=== PATIENT | female | born 1945 | race Asian ===

== ENCOUNTER 2019-03-23 09:40 | Emergency (ER) | payer OTHER, BC ==
[2019-03-23 09:52] VITALS: BMI 27.3
[2019-03-23] MEDS ORDERED: ONDANSETRON 4 MG/2 ML VIAL IVPUSH ONE (10:08)
[2019-03-23] MEDS ORDERED: SODIUM CHLORIDE 0.9% 1000 ML INFUS.BAG IV ONE (10:14)
--- NOTE | 2019-03-23 10:25 | PDOC ---
Documentation entered by Yazmin Winslow SCRIBE, acting as scribe for Razia Galaviz MD. Razia Galaviz MD: This documentation has been prepared by the Goldy mata Adrianna, SCRIBE, under my direction and personally reviewed by me in its entirety. I confirm that the documentation accurately reflects all work, treatment, procedures, and medical decision making performed by me. History of Present Illness - General Chief Complaint: Pain Stated Complaint: ABD.PAIN - History of Present Illness Initial Comments: 74 Y F, PMH of TIA (2007), HTN, HLD, presenting with abdominal pain since yesterday. Patient notes sudden onset abdominal pain, most prominent over the LLQ. Her pain is exacerbated with PO intake, and she endorses associated nausea (without vomiting). She reports taking tylenol last night with minimal relief of symptoms. Patient notes she fell down the stairs 2 days ago, landing on her buttox and is unsure if it is related to her current symptoms. She reports some low back pain secondary to the fall, but denies bruising, hip pain, pain with ambulation, or head contusion. Patient reports unassociated urinary frequency secondary to hydrochlorothiazide medication. She otherwise denies any acute complaints. Denies fever, chills, diarrhea, constipation, dysuria, or hematuria. Allergies: Meperidine HCl, penicillins Surgical History: x3, appendectomy, tonsillectomy Social History: Denies EtOH, tobacco, or illicit drug use PCP: Dr. Love Past History - Past Medical History Allergies/Adverse Reactions: Allergies Allergy/AdvReac Type Severity Reaction Status Date / Time meperidine HCl [From Demerol] Allergy Mild vomitting Verified 03/23/19 09:49 Penicillins Allergy Mild Rash Verified 03/23/19 09:49 Home Medications: Ambulatory Orders Amlodipine Besylate [Norvasc -] 5 mg PO DAILY 10/17/13 Aspirin/Dipyridamole [Aggrenox -] 1 combo PO ONCE 10/17/13 Losartan Potassium 25 mg PO DAILY 10/17/13 Ciprofloxacin [Cipro -] 500 mg PO Q12H #28 tablet 03/23/19 metroNIDAZOLE [Flagyl -] 500 mg PO TID #42 tablet MDD 3 03/23/19 CVA: Yes (TIA: 2007) COPD: No HTN: Yes - Surgical History Abdominal Surgery: Yes Appendectomy: Yes - Psycho Social/Smoking Cessation Hx Smoking History: Never smoked Information on smoking cessation initiated: No Hx Alcohol Use: No Drug/Substance Use Hx: No Review of Systems - Review of Systems Comments:: GENERAL/CONSTITUTIONAL: No fever or chills. No weakness. HEAD, EYES, EARS, NOSE AND THROAT: No change in vision. No ear pain or discharge. No sore throat. CARDIOVASCULAR: No chest pain or shortness of breath. RESPIRATORY: No cough, wheezing, or hemoptysis. GASTROINTESTINAL: +LLQ abdominal pain, worse with eating. +Nausea. No vomiting, diarrhea or constipation. GENITOURINARY: +Urinary frequency (secondary to hydrochlorothiazide). No dysuria , frequency, or change in urination. MUSCULOSKELETAL: +Low back pain (secondary to fall). No joint or muscle swelling or pain. No neck pain. SKIN: No rash NEUROLOGIC: No headache, vertigo, loss of consciousness, or change in strength/ sensation. ENDOCRINE: No increased thirst. No abnormal weight change. HEMATOLOGIC/LYMPHATIC: No anemia, easy bleeding, or history of blood clots. ALLERGIC/IMMUNOLOGIC: No hives or skin allergy. *Physical Exam - Vital Signs Last Vital Signs Temp Pulse Resp BP Pulse Ox 98 F 59 L 18 152/89 100 03/23/19 09:48 03/23/19 09:48 03/23/19 09:48 03/23/19 09:48 03/23/19 09:48 - Physical Exam Comments: 03/23/19 10:23 Patient is awake alert no acute distress lungs are clear bilaterally heart is regular without any murmurs rubs or gallops abdomen is soft there is mild left lower quadrant tenderness to palpation no rebound no guarding no CVA tenderness no ecchymosis noted to the skin. Extremities are warm well perfused there is no edema patient has symmetric 2+ radial DP pulses neurologically she is alert and oriented x3 moving all 4 extremities ED Treatment Course - LABORATORY CBC & Chemistry Diagram: 03/23/19 10:25 03/23/19 10:25 - RADIOLOGY Radiology Studies Ordered: Category Date Time Status ABDOMEN & PELVIS CT WITH CONTR [CT] Stat CT Scan 03/23/19 10:15 Ordered Radiograph Interpretation: EXAM#: TYPE/EXAM: RESULT: [id number] CT/ABDOMEN PELVIS CT W/O CONTR HISTORY PROVIDED: Left lower quadrant pain IMPRESSION: 1. Findings suspicious for acute diverticulitis of the distal descending colon without abscess formation. 2. Diffuse fatty infiltration of the liver. 3. Cholelithiasis. Reported By: Grant Harmon MD 03/23/19 13:24 Medical Decision Making - Medical Decision Making 03/23/19 10:24 74-year-old female history of hypercholesterol hypertension here today complaining of left lower quadrant pain and nausea. Started yesterday mild left lower quadrant tenderness to exam. Differential includes diverticulitis, colitis, UTI, pyelonephritis, ovarian pathology. Plan CT abdomen pelvis with oral contrast IV fluids. Patient declined antiemetics or pain medication at this time 03/23/19 14:[address] with diverticulitis. wbc normal 8. pt feels comfortable. would like to go home with cipro and flagyl for 2 weeks. wouldl gertrude to follow up with her GI dr martinez. instructed to come back with fever worsening pain or any concerns. informed about gallstones and fatty liver also. Discharge - Discharge Information Problems reviewed: Yes Clinical Impression/Diagnosis: Diverticulitis, Fatty liver, Cholelithiases Condition: Improved Disposition: HOME - Admission No - Additional Discharge Information Prescriptions: Ciprofloxacin [Cipro -] 500 mg PO Q12H #28 tablet metroNIDAZOLE [Flagyl -] 500 mg PO TID #42 tablet MDD 3 - Follow up/Referral Referrals: Axel Martinez MD [Staff Physician] - Michelle Love MD [Primary Care Provider] - - Patient Discharge Instructions Patient Printed Discharge Instructions: Diverticulitis, DI for Nonalcoholic Fatty Liver Disease Additional Instructions: your CT scan shows you have diverticulitis . you should take clear liquids for at least 48 hrs . return immediately for worsening pain, fever. vomiting or any concerns. you should follow up with dr Mackey tomorrow. confirm time with the office. you should take ciprofloxacin 500 mg twice daily x 2 weeks starting this evening. you should also take flagyl 500 mg three times daily x 2 weeks. you will also need to follow up wtih DR martinez your GI doctor, for fatty liver disease and gallstones that were seen on the ct scan of your abdomen, for your pain you can take tylenol 500 mg every 6 hrs as needed. - Post Discharge Activity
[2019-03-23 10:49] LABS: BASO % 0.6 % (0-2.0); EOS % 3.6 % (0-4.5); HEMATOCRIT 38.8 % (32.4-45.2); HEMOGLOBIN 13.2 GM/dL (10.7-15.3); LYMPH % 24.7 % (8-40); MCH 29.7 pg (25.7-33.7); MCHC 33.9 g/dl (32.0-36.0); MEAN CELL VOLUME 87.7 fl (80-96); MEAN PLT VOLUME 6.8 fl (7.5-11.1); NEUT % 63.1 % (42.8-82.8); PLATELET COUNT 266 K/MM3 (134-434); RBC 4.43 M/mm3 (3.60-5.2); RDW 14.2 % (11.6-15.6); WHITE BLOOD COUNT 8.3 K/mm3 (4.0-10.0)
[2019-03-23 11:15] LABS: ALBUMIN 3.7 g/dl (3.4-5.0); BILIRUBIN,TOTAL 0.8 mg/dL (0.2-1); BLOOD UREA NITROGEN 13.4 mg/dL (7-18); CALCIUM 8.8 mg/dL (8.5-10.1); POTASSIUM 3.9 mmol/L (3.5-5.1); TOT PROT 7.6 g/dl (6.4-8.2)
[2019-03-23 11:22] LABS: PH,URINE 7.5 (5.0-8.0); URINE APPEARANCE Clear; URINE BILIRUBIN Negative (NEGATIVE); URINE COLOR Yellow; URINE GLUCOSE (UA) Negative (NEGATIVE); URINE KETONE Negative (NEGATIVE); URINE LEUK ESTERASE Negative (NEGATIVE); URINE NITRITE Negative (NEGATIVE); URINE PROTEIN Negative (NEGATIVE); URINE UROBILINOGEN 0.2 mg/dL (0.2-1.0)
[2019-03-23] MEDS ORDERED: CIPROFLOXACIN 400 MG/D5W 400 MG/200 ML IVPB IVPB ONE (13:42)
[2019-03-23 14:01] VITALS: BP 147/98; PULSE 68; TEMP 97.9
== END 2019-03-23 14:40 | disposition home or self-care (01) ==
LOC: JER 09:40
PROC: 3E0337Z Introduction of Electrolytic and Water Balance Substance into Peripheral Vein, Percutaneous Approach (ICD-10-PCS; principal; 2019-03-23)
PROC: 3E03329 Introduction of Other Anti-infective into Peripheral Vein, Percutaneous Approach (ICD-10-PCS; 2019-03-23)
DX: K57.92 Diverticulitis of intestine, part unspecified, without perforation or abscess without bleeding (principal); K76.0 Fatty (change of) liver, not elsewhere classified; K80.20 Calculus of gallbladder without cholecystitis without obstruction; E78.00 Pure hypercholesterolemia, unspecified; I10 Essential (primary) hypertension; Z86.73 Personal history of transient ischemic attack (TIA), and cerebral infarction without residual deficits; Z88.0 Allergy status to penicillin; Z88.8 Allergy status to other drugs, medicaments and biological substances
CPT/HCPCS: 36415; 74176-TC; 80053; 81003; 83690; 85025; 87086; 99283-25; J7030; Q9967

== ENCOUNTER 2019-04-19 11:25 | Emergency (ER) | payer OTHER, BC ==
[2019-04-19 11:30] VITALS: BMI 29.2
[2019-04-19 12:41] LABS: BASO % 0.9 % (0-2.0); EOS % 4.7 % (0-4.5); HEMOGLOBIN 13.3 GM/dL (10.7-15.3); LYMPH % 37.3 % (8-40); MCHC 32.4 g/dl (32.0-36.0); MEAN CELL VOLUME 89.4 fl (80-96); MEAN PLT VOLUME 6.9 fl (7.5-11.1); MONO % 7.7 % (3.8-10.2); NEUT % 49.4 % (42.8-82.8); PLATELET COUNT 285 K/MM3 (134-434); RBC 4.59 M/mm3 (3.60-5.2); RDW 14.5 % (11.6-15.6); WHITE BLOOD COUNT 6.5 K/mm3 (4.0-10.0)
[2019-04-19 12:45] LABS: INR 0.92 (0.83-1.09); PROTHROMBIN TIME (PATIENT) 10.8 SEC (9.7-13.0)
[2019-04-19 12:47] LABS: ACTIVATED PTT 34.2 SECONDS (25.2-36.5)
[2019-04-19 13:01] LABS: PH,URINE 7.5 (5.0-8.0); URINE APPEARANCE CLEAR; URINE BILIRUBIN NEGATIVE (NEGATIVE); URINE COLOR YELLOW; URINE GLUCOSE (UA) NEGATIVE (NEGATIVE); URINE KETONE NEGATIVE (NEGATIVE); URINE LEUK ESTERASE NEGATIVE (NEGATIVE); URINE NITRITE NEGATIVE (NEGATIVE); URINE PROTEIN NEGATIVE (NEGATIVE); URINE UROBILINOGEN 0.2 mg/dL (0.2-1.0)
[2019-04-19 13:10] LABS: ALBUMIN 3.7 g/dl (3.4-5.0); BILIRUBIN,TOTAL 0.3 mg/dL (0.2-1); BLOOD UREA NITROGEN 14.3 mg/dL (7-18); CALCIUM 8.9 mg/dL (8.5-10.1); CREATININE 0.9 mg/dL (0.55-1.3); POTASSIUM 3.9 mmol/L (3.5-5.1); TOT PROT 7.6 g/dl (6.4-8.2)
--- NOTE | 2019-04-19 13:34 | PDOC ---
Documentation entered by Lucila Gallegos SCRIBE, acting as scribe for Babar Christensen MD. Babar Christensen MD: This documentation has been prepared by the Rosy mata Xhesika, SCRIBE, under my direction and personally reviewed by me in its entirety. I confirm that the documentation accurately reflects all work, treatment, procedures, and medical decision making performed by me. History of Present Illness - General Chief Complaint: Rectal Bleed Stated Complaint: RECTAL BLEED Time Seen by Provider: 04/19/19 12:01 History Source: Patient Exam Limitations: No Limitations - History of Present Illness Initial Comments: 04/19/19 12:16 The patient is a 74 year old female with a PMH of TIA (2007), HTN, HLD and recent diverticulitis who presents to the ED for diarrhea and 2 episodes of rectal bleeding. Patient notes she was seen here 03/23/19, was diagnosed with diverticulitis and was on antibiotics for 2 weeks. Patient notes she has been endorsing soft stools 3-4x a day since 03/23/19, however, at 6:30am pt noticed fresh blood mixed with her stool and then again at 10:30am had another similar episode. Patient notes she endorses mild LLQ pain which is chronic since her diverticulitis. Patient notes she has never had an endoscopy. The patient denies any new pain, chest pain, shortness of breath, headache and dizziness. Denies fever, chills, cough, nausea, vomiting, and constipation. Denies dysuria, frequency, urgency and hematuria. Allergies: Meperidine HCl, penicillins Surgical History: x3, appendectomy, tonsillectomy Social History: Denies EtOH, tobacco, or illicit drug use PCP: Dr. Love Past History - Past Medical History Allergies/Adverse Reactions: Allergies Allergy/AdvReac Type Severity Reaction Status Date / Time meperidine HCl [From Demerol] Allergy Mild vomitting Verified 04/19/19 11:30 Penicillins Allergy Mild Rash Verified 04/19/19 11:30 Home Medications: Ambulatory Orders Amlodipine Besylate [Norvasc -] 5 mg PO DAILY 10/17/13 Atorvastatin Ca [Lipitor] 20 mg PO HS 04/19/19 C,E,Zinc,Copper 11/Tpnhl3i/Lut [Ocuvite Adult 50 Plus Softgel] 1 tab PO DAILY Cholecalciferol (Vitamin D3) [Vitamin D3] 1,000 unit PO DAILY 04/19/19 Clopidogrel Bisulfate [Plavix] 75 mg PO DAILY 04/19/19 Cyclosporine [Restasis] 1 each OU BID 04/19/19 Metoprolol Succinate 25 mg PO HS 04/19/19 Multivitamin/Iron/Folic Acid [Centrum Adults Tablet] 1 each PO DAILY 04/19/19 [place]-3 Acid Ethyl Esters [Lovaza -] 1 gm PO BID 04/19/19 Vitamin B Complex 1 each PO DAILY 04/19/19 CVA: Yes (TIA: 2008) COPD: No GI Disorders: Yes (DIVERTICULITIS) HTN: Yes Hypercholesterolemia: Yes - Surgical History Abdominal Surgery: Yes Appendectomy: Yes - Psycho Social/Smoking Cessation Hx Smoking History: Never smoked Hx Alcohol Use: No Drug/Substance Use Hx: No Review of Systems - Review of Systems Able to Perform ROS?: Yes Comments:: 04/19/19 12:18 A complete review of 10 out of 10 review of systems is taken and is negative apart from what is previously mentioned below and in the HPI. *Physical Exam - Vital Signs Last Vital Signs Temp Pulse Resp BP Pulse Ox 98.1 F 72 18 149/55 L 99 04/19/19 11:26 04/19/19 11:26 04/19/19 11:26 04/19/19 11:26 04/19/19 11:26 - Physical Exam Comments: 04/19/19 12:18 Vitals: Triage Vital signs reviewed General Appearance: no acute distress, well nourished well developed, Neck: Supple;No Nuchal rigidity Chest Wall: Nontender Cardiac: Regular rate and rhythm, no murmurs, no rubs, no gallops, Lungs: Clear to auscultation bilateral, good air movement bilaterally, Abdomen: + LLQ pain to palpation. Soft, nondistended, normal bowel sounds, nontender. Extremities: Full range of motion to all extremities, no cyanosis, clubbing, or edema Skin: Warm and dry, no rashes or lesions, no petechiae Neuro: AOX3; Cranial Nerves 2-12 grossly c intact, Strength intact to all extremities, Sensation intact to all extremities, gait normal Psych: normal mood, normal affect Heart Score/ECG Review - ECG Impressions Comment:: 04/19/19 13:34 EKG performed at 1224 demonstrates normal sinus rhythm no ST elevations no T wave inversions Interpreted by me. ED Treatment Course - LABORATORY CBC & Chemistry Diagram: 04/19/19 15:52 04/19/19 12:24 Medical Decision Making - Medical Decision Making 04/19/19 13:34 Small amount of bright red blood per rectum this morning x2 history of diverticulitis We will check labs CT observe and reassess 04/19/19 16:52 Well-appearing no apparent distress with 3 episodes of very scant bright red blood per rectum and toilet vital signs stable H&H stable CT abdomen pelvis demonstrates improving diverticulitis Case discussed with Dr. Matos gastroenterology recommends IV fluids and close follow-up tomorrow Findings discussed with patient and family in agreement with plan they will return to the ED for any severe worsening symptoms or for any concerns Discharge - Discharge Information Problems reviewed: Yes Clinical Impression/Diagnosis: GI bleed Qualifiers: GI bleed type/associated pathology: unspecified gastrointestinal hemorrhage type Qualified Code(s): K92.2 - Gastrointestinal hemorrhage, unspecified Condition: Fair Disposition: HOME - Admission No - Follow up/Referral Referrals: Michelle Love MD [Primary Care Provider] - Axel Matos MD [Staff Physician] - - Patient Discharge Instructions Patient Printed Discharge Instructions: DI for Rectal Bleeding Additional Instructions: Drink plenty of fluids. Follow-up with Dr. Matos tomorrow at 10 AM. Return to the emergency department for any severe abdominal pain weakness dizziness lightheadedness or for any concerns. - Post Discharge Activity
--- NOTE | 2019-04-19 15:14 | EKG ---
Test Reason : Blood Pressure : / mmHG Vent. Rate : 064 BPM Atrial Rate : 064 BPM P-R Int : 208 ms QRS Dur : 080 ms QT Int : 406 ms P-R-T Axes : 039 -04 027 degrees QTc Int : 418 ms NORMAL SINUS RHYTHM NORMAL ECG POOR R WAVE PROGRESSION NO PREVIOUS ECGS AVAILABLE Confirmed by MD Willian, Brian ([id number]) on 04/19/2019 3:14:22 PM Referred By: Confirmed By:Brian Dorsey MD
[2019-04-19 15:20] VITALS: BP 131/67; PULSE 77; TEMP 97.9
[2019-04-19 16:01] LABS: HEMATOCRIT 38.9 % (32.4-45.2); HEMOGLOBIN 12.8 GM/dL (10.7-15.3); MCH 29.4 pg (25.7-33.7); MEAN PLT VOLUME 6.6 fl (7.5-11.1); PLATELET COUNT 258 K/MM3 (134-434); RBC 4.37 M/mm3 (3.60-5.2); RDW 14.4 % (11.6-15.6); WHITE BLOOD COUNT 6.5 K/mm3 (4.0-10.0)
[2019-04-19] MEDS ORDERED: SODIUM CHLORIDE 0.9% 1000 ML INFUS.BAG IV ONE (16:31)
== END 2019-04-19 17:11 | disposition home or self-care (01) ==
LOC: JER 11:25
DX: K92.2 Gastrointestinal hemorrhage, unspecified (principal); K57.32 Diverticulitis of large intestine without perforation or abscess without bleeding; I10 Essential (primary) hypertension; E78.5 Hyperlipidemia, unspecified; E78.00 Pure hypercholesterolemia, unspecified; Z86.73 Personal history of transient ischemic attack (TIA), and cerebral infarction without residual deficits; Z88.0 Allergy status to penicillin; Z88.5 Allergy status to narcotic agent
CPT/HCPCS: 36415; 71045-TC-FY; 74177-TC; 80053; 81003; 82272; 85025; 85027; 85610; 85730; 86850; 86900; 86901; 93005; 93010; 99283-25; J7030

== ENCOUNTER 2019-05-13 06:09 | Inpatient (IN) | payer OTHER, BC ==
[2019-05-12 16:14] VITALS: BMI 28.6
[2019-05-13] MEDS ORDERED: ALVIMOPAN 12 MG CAP PO ONE ×2 (06:56→18:37)
[2019-05-13] MEDS ORDERED: ERTAPENEM SODIUM 1 GM VIAL ONE (06:56)
[2019-05-13] MEDS ORDERED: MIDAZOLAM HCL 2 MG/2 ML SINGLE DOSE VIAL ONE ×3 (07:24→07:28)
[2019-05-13] MEDS ORDERED: PROPOFOL 20 ML ONE ×2 (07:24)
[2019-05-13] MEDS ORDERED: SUCCINYLCHOLINE CHLORIDE 200 MG/10 ML SYRINGE ONE (07:24)
[2019-05-13] MEDS ORDERED: ROCURONIUM BROMIDE 50 MG/5 ML SYRINGE ONE ×2 (07:24→09:06)
[2019-05-13] MEDS ORDERED: fentaNYL CITRATE 250 MCG/5 ML VIAL ONE (07:24)
[2019-05-13] MEDS ORDERED: ceFAZolin SODIUM 1 GM VIAL ONE (07:25)
[2019-05-13] MEDS ORDERED: LIDOCAINE HCL/PF 2% SDV 5ML VIAL ONE (07:25)
[2019-05-13] MEDS ORDERED: SODIUM CHLORIDE 0.9% P/F 10 ML VIAL IJ ONE (07:25)
[2019-05-13] MEDS ORDERED: DEXAMETHASONE SOD PHOSPHATE 4 MG/1 ML VIAL ONE (07:25)
[2019-05-13] MEDS ORDERED: DEXAMETHASONE SOD PHOSPHATE/PF 10 MG/ML SDV ONE (07:29)
[2019-05-13] MEDS ORDERED: BUPIVACAINE HCL/PF 0.5% (5 MG/ML) 30 ML VIAL IJ ONE ×2 (07:29→08:01)
[2019-05-13] MEDS ORDERED: LIDOCAINE HCL 1%, 10 MG/ML (20ML VIAL) ONE (08:00)
--- NOTE | 2019-05-13 08:20 | HP ---
History & Physical Update - History History: No Change - Physical Physical: No Change - Assessment Assessment: No Change - Plan Plan: No Change
--- NOTE | 2019-05-13 08:25 | HP ---
History & Physical Update - History History: No Change - Physical Physical: No Change - Assessment Assessment: No Change - Plan Plan: No Change
[2019-05-13] MEDS ORDERED: ERTAPENEM SODIUM 1 GM VIAL IVPB ONE (08:50)
[2019-05-13] MEDS ORDERED: BUPIVACAINE HCL/PF 0.5% (5MG/ML) 10 ML VIAL IJ ONE (12:23)
[2019-05-13] MEDS ORDERED: NEOSTIGMINE METHYLSULFATE 0.5 MG/ML - 10 ML MDV ONE (13:17)
[2019-05-13] MEDS ORDERED: DEXTROSE 5%-0.45% SALINE 1,000 ML IV SCH (13:45)
[2019-05-13] MEDS ORDERED: ONDANSETRON 4 MG/2 ML VIAL IVPUSH PRN (13:45)
[2019-05-13] MEDS ORDERED: oxyCODONE HCL 5 MG TABLET PO PRN ×2 (13:45)
--- NOTE | 2019-05-13 14:01 | OP ---
Operative Note - Note: Operative Date: 05/13/19 Pre-Operative Diagnosis: sigmoid mass Operation: Laproscopic sigmoid partial colon resection Post-Operative Diagnosis: Same as Pre-op Surgeon: Joseph Meléndez Loss Prevention Auditor: Gustavo Jones Anesthesiologist/PRIMARY CARE PROVIDER: Kayli Hood Anesthesia: General Estimated Blood Loss (mls): 50 Fluid Volume Replaced (mls): 200 Operative Report Dictated: Yes
[2019-05-13] MEDS: ACETAMINOPHEN 1000 MG/100 ML VIAL (NON FORMULARY) IVPB PRN ×2 (14:47→20:40)
[2019-05-13] MEDS ORDERED: LACTATED RINGERS SOLUTION 1,000 ML IV SCH (15:00)
--- NOTE | 2019-05-13 16:02 | OP ---
DATE OF OPERATION: 05/13/2019 PROCEDURE: Laparoscopic partial sigmoid colectomy with intracorporeal anastomosis and splenic flexure takedown. PREOPERATIVE DIAGNOSIS: Sigmoid colon mass, rule out adenocarcinoma. POSTOPERATIVE DIAGNOSIS: Sigmoid colon mass, rule out adenocarcinoma. SURGEON: Joseph Meléndez MD MARKETING CONTENT COORDINATOR: PIPER Marte and PIPER Taylor ANESTHESIA: General endotracheal. FINDINGS AND PROCEDURE: This is a 74-year-old female who presented with left lower quadrant pain and rectal bleeding for which a colonoscopy revealed a proximal sigmoid colon mass. A preoperative CT scan revealed a mass in the proximal sigmoid colon suspicious initially for diverticulitis but cannot rule out intraluminal mass. The liver was noted to be free of abnormal lesions. 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 Patient was brought to the operating room and placed in supine position. General endotracheal anesthesia was administered. The patient was then placed in modified lithotomy position. The abdomen was prepped and draped in the usual sterile fashion. The left arm was tucked to the side. Patient already had preoperative ultrasound-guided TAP block. Using the Optiview technique, the peritoneal cavity was entered via a 5-mm supraumbilical incision. Using scalpel blade No. 15 and using a 5-mm 30-degree scope inserted in a 5-mm optical port, pneumoperitoneum was established. Patient was then placed in Trendelenburg left side down position. A 12-mm port was inserted at the left lower quadrant. Another 5-mm port was inserted at the right abdomen at the level of the umbilicus. Another 5-mm port was also inserted at the subxiphoid area. Dense adhesion of the uterus at the posterior abdominal wall was taken down using the LigaSure vessel sealing device. Other omental adhesions to the posterior abdominal wall were also taken down using the LigaSure. A bulky mass was noted at the proximal sigmoid colon, and with the aid of the traction with the laparoscopic grasper, the medial aspect of the sigmoid mesocolon was exposed. The visceral peritoneum was scored using the spatula connected to monopolar cautery , and further dissection of the mesocolon was done using the LigaSure vessel sealing device. The inferior mesenteric artery was identified, and this was isolated and transected using the Endo DORA 45/2.5-mm vascular stapler. Afterwards, further dissection into the retroperitoneum was done until the White line of Toldt was encountered. This was also dissected to cross the other side of the gutter. The ureter was identified and during the rest of the dissection was carefully avoided. The dissection was carried distally towards the distal sigmoid colon at the level of the sacral promontory. Further dissection proximally was done towards the splenic flexure. The splenic flexure was then taken down using the LigaSure vessel sealing device by incising the White line of Toldt towards the spleen taking down the lenocolic ligaments. Afterwards, patient was placed temporarily in reverse Trendelenburg position, and another 5-mm port was inserted in the left upper quadrant to aid in traction of the omentum. Omentum was lifted anteriorly to expose the transverse colon, and the transverse colon was from the omentum to enter the lesser sac. Further dissection toward the splenic flexure was done until the splenic flexure was completely taken down taking down the splenocolic ligaments. After the mobilization was deemed complete, patient was placed back in Trendelenburg, and the sigmoid colon was transected at least 7 cm from the proximal end of the tumor using the Endo DORA 60/3.5-mm stapling device. The further dissection distally was done, and the sigmoid colon, which was noted to be redundant, was transected at least 5 cm of normal sigmoid colon also using the Endo DORA 60/3.5-mm stapling device. This then completed the resection. A [id number] colocolic anastomosis was then constructed by attaching the proximal and distal colon with traction sutures using Vicryl 2-0. Colotomies of the sigmoid and the descending colon were done, and the Endo DORA 60/3.5-mm stapling device was passed into the lumen and fired to create the common channel. The common enterotomy was then closed with full-thickness layer of V-Lock 3-0 suture followed by a seromuscular layer of 3-0 V-Lock suture. The anastomosis was deemed satisfactory. A 5-cm transverse suprapubic incision was made using scalpel blade No. 15 and the dissection carried down to subcutaneous tissue. The fascia was incised using Bovie cautery until the parietal peritoneum was encountered. This was incised using Bovie cautery to enter the peritoneal cavity. A small size Duane wound retractor was then deployed, and the specimen was extracted through the suprapubic incision. After this was completed, pneumoperitoneum was re-established, and the peritoneal cavity was again carefully inspected, and it was noted to be free of inadvertent injury. The omentum was pulled down towards the pelvis, and the anastomosis was again inspected and was noted to be intact. The pneumoperitoneum was evacuated, and the ports were removed. The wounds were closed with a continuous Vicryl 0 suture for the fascia the suprapubic incision and 1 [id number] Vicryl 0 suture for the fascia of the right lower quadrant port site and fany for the skin. An abdominal x-ray was taken intraoperatively to rule out presence of foreign body. The wounds were covered with sterile dressing. The patient was successfully extubated and transferred to the post anesthesia care unit in stable condition. Estimated blood loss was about 50 mL. Wound class; clean, contaminated. The patient received 1 g of Invanz prior to the start of the procedure. Page [id number] MTDD
[2019-05-13] MEDS: CEFAZOLIN 2 GM/D5W 2 GM/50 ML ML IVPB SCH (17:44)
[2019-05-13] MEDS ORDERED: CEFAZOLIN 2 GM in DEXTROSE 5%-WATER - 100 ML IVPB SCH (18:00)
[2019-05-13] MEDS ORDERED: ERTAPENEM SODIUM 1 GM in SODIUM CHLORIDE 50 ML IVPB ONE (19:15)
[2019-05-13] MEDS: metoPROLOL SUCCINATE 25 MG TAB.SR.24H (FP) PO SCH (21:59)
[2019-05-13] MEDS: ATORVASTATIN CA 10 MG TABLET (FP) PO SCH (21:59)
[2019-05-13] MEDS ORDERED: PATIENT'S OWN MEDICATION (NON-FORMULARY) (Cyclosporine [Restasis] 1 EACH) OU SCH (22:00)
[2019-05-13] MEDS: OMEGA-3 ACID ETHYL ESTERS (FATTY-ACIDS) 1 GM CAPSULE (FP) PO SCH (22:00)
--- NOTE | 2019-05-13 23:37 | EKG ---
Test Reason : Blood Pressure : / mmHG Vent. Rate : 086 BPM Atrial Rate : 086 BPM P-R Int : 232 ms QRS Dur : 086 ms QT Int : 368 ms P-R-T Axes : 041 003 024 degrees QTc Int : 440 ms SINUS RHYTHM WITH 1ST DEGREE A-V BLOCK NONSPECIFIC T WAVE ABNORMALITY ABNORMAL ECG WHEN COMPARED WITH ECG OF 19-APR-2019 12:24, NONSPECIFIC T WAVE ABNORMALITY, WORSE IN INFERIOR LEADS NONSPECIFIC T WAVE ABNORMALITY NOW EVIDENT IN LATERAL LEADS Confirmed by MD Clotilde, Damian ([id number]) on 05/13/2019 11:36:58 PM Referred By: VIVI LAU Confirmed By:Damian Mabry MD
[2019-05-14] MEDS: CEFAZOLIN 2 GM/D5W 2 GM/50 ML ML IVPB SCH (01:39)
[2019-05-14] MEDS: OMEGA-3 ACID ETHYL ESTERS (FATTY-ACIDS) 1 GM CAPSULE (FP) PO SCH ×2 (09:16→21:09)
[2019-05-14] MEDS: CLOPIDOGREL BISULFATE 75 MG TABLET (FP) PO SCH ×2 (09:17→09:23)
[2019-05-14] MEDS: amLODIPine BESYLATE 5 MG TABLET (FP) PO SCH (09:17)
[2019-05-14] MEDS: MULTIVITAMINS THER W-MINERALS COMBO TABLET (FP) PO SCH (09:17)
[2019-05-14] MEDS ORDERED: PATIENT'S OWN MEDICATION (NON-FORMULARY) (C,E,Zinc,Copper 11/Omega3s/Lut [Ocuvite Adult 50 PO SCH (10:00)
[2019-05-14] MEDS ORDERED: ENOXAPARIN NA (PORCINE) 30 MG/0.3 ML DISP.SYRIN SQ SCH (10:30)
[2019-05-14 12:13] LABS: BASO % 0.2 % (0-2.0); HEMATOCRIT 34.6 % (32.4-45.2); HEMOGLOBIN 11.5 GM/dL (10.7-15.3); LYMPH % 10.3 % (8-40); MCH 29.6 pg (25.7-33.7); MCHC 33.3 g/dl (32.0-36.0); MEAN CELL VOLUME 88.8 fl (80-96); MEAN PLT VOLUME 7.2 fl (7.5-11.1); MONO % 6.9 % (3.8-10.2); NEUT % 82.6 % (42.8-82.8); PLATELET COUNT 250 K/MM3 (134-434); RBC 3.89 M/mm3 (3.60-5.2); RDW 14.5 % (11.6-15.6); WHITE BLOOD COUNT 12.8 K/mm3 (4.0-10.0)
[2019-05-14 12:37] LABS: ALBUMIN 3.2 g/dl (3.4-5.0); BILIRUBIN,TOTAL 0.5 mg/dL (0.2-1); BLOOD UREA NITROGEN 8.5 mg/dL (7-18); CALCIUM 8.6 mg/dL (8.5-10.1); CREATININE 0.8 mg/dL (0.55-1.3); TOT PROT 6.4 g/dl (6.4-8.2)
--- NOTE | 2019-05-14 13:08 | PN ---
Progress Note, Physician Chief Complaint: s/p laparoscopic partial sigmoid colectomy History of Present Illness: POD # 1 Passed flatus and had a small bowel movement Post-op pain minimal - Current Medication List Current Medications: Active Medications Acetaminophen (Ofirmev Injection -) 1,000 mg IVPB Q6H PRN PRN Reason: PAIN LEVEL 4 - 6 Last Admin: 05/13/19 20:40 Dose: 1,000 mg Amlodipine Besylate (Norvasc -) 5 mg PO DAILY [facility] Last Admin: 05/14/19 09:17 Dose: 5 mg Atorvastatin Calcium (Lipitor -) 10 mg PO HS [facility] Last Admin: 05/13/19 21:59 Dose: 10 mg Clopidogrel Bisulfate (Plavix -) 75 mg PO DAILY [facility] Last Admin: 05/14/19 09:23 Dose: Not Given Enoxaparin Sodium (Lovenox -) 30 mg SQ DAILY [facility] Last Admin: 05/14/19 10:53 Dose: 30 mg Dextrose/Sodium Chloride (D5-1/2ns -) 1,000 mls @ 100 mls/hr IV ASDIR [facility] Last Admin: 05/13/19 15:45 Dose: 0 mls Metoprolol Succinate (Toprol Xl -) 25 mg PO HS [facility] Last Admin: 05/13/19 21:59 Dose: 25 mg Multivitamins/Minerals (Theragran-M) 1 each PO DAILY [facility] Last Admin: 05/14/19 09:17 Dose: 1 each Non-Formulary Medication (C,E,Zinc,Copper 11/Rwrjb8s/Lut [Ocuvite Adult 50 Plus Softgel]) 1 tab PO DAILY [facility] Non-Formulary Medication (Cyclosporine [Restasis]) 1 each OU BID [id number] Ethyl Esters (Lovaza -) 1 gm PO BID [facility] Last Admin: 05/14/19 09:16 Dose: 1 gm Ondansetron HCl (Zofran Injection) 4 mg IVPUSH Q6H PRN PRN Reason: NAUSEA AND/OR VOMITING - Objective Vital Signs: Vital Signs Temperature 98.8 F 05/14/19 09:00 Pulse Rate 72 05/14/19 09:00 Respiratory Rate 18 05/14/19 09:00 Blood Pressure 118/57 L 05/14/19 09:00 O2 Sat by Pulse Oximetry (%) 98 05/13/19 21:00 Constitutional: Yes: Calm Respiratory: Yes: CTA Bilaterally Gastrointestinal: Yes: Soft, Tenderness (mild at port sites) Wound/Incision: Yes: Dressing Dry and Intact Labs: CBC, BMP 05/14/19 10:54 05/14/19 08:15 Problem List - Problems (1) Colonic mass Assessment/Plan: Doing well, no post-op ileus continue clear liquids OOB, IS, GI, & DVT prophylaxis Code(s): K63.89 - OTHER SPECIFIED DISEASES OF INTESTINE
[2019-05-14] MEDS: D5-1/2NS+20 MEQ KCL - 20 MEQ/1,000 ML INFUS.BAG IV SCH (14:45)
[2019-05-14] MEDS: metoPROLOL SUCCINATE 25 MG TAB.SR.24H (FP) PO SCH (21:09)
[2019-05-14] MEDS: ATORVASTATIN CA 10 MG TABLET (FP) PO SCH (21:09)
[2019-05-15 09:30] LABS: HEMATOCRIT 36.1 % (32.4-45.2); HEMOGLOBIN 12.1 GM/dL (10.7-15.3); MCHC 33.6 g/dl (32.0-36.0); MEAN CELL VOLUME 89.2 fl (80-96); MEAN PLT VOLUME 7.1 fl (7.5-11.1); PLATELET COUNT 244 K/MM3 (134-434); RBC 4.05 M/mm3 (3.60-5.2); RDW 14.6 % (11.6-15.6); WHITE BLOOD COUNT 10.5 K/mm3 (4.0-10.0)
[2019-05-15] MEDS: ENOXAPARIN NA (PORCINE) 40 MG/0.4 ML DISP.SYRIN SQ SCH (09:33)
[2019-05-15] MEDS: OMEGA-3 ACID ETHYL ESTERS (FATTY-ACIDS) 1 GM CAPSULE (FP) PO SCH ×2 (09:34→21:21)
[2019-05-15] MEDS: MULTIVITAMINS THER W-MINERALS COMBO TABLET (FP) PO SCH (09:34)
[2019-05-15] MEDS: amLODIPine BESYLATE 5 MG TABLET (FP) PO SCH (09:34)
[2019-05-15 09:55] LABS: BLOOD UREA NITROGEN 9.7 mg/dL (7-18); CALCIUM 8.7 mg/dL (8.5-10.1); CREATININE 0.7 mg/dL (0.55-1.3); POTASSIUM 3.4 mmol/L (3.5-5.1)
--- NOTE | 2019-05-15 14:12 | PN ---
Progress Note, Physician Chief Complaint: s/p laparoscopic partial sigmoid colectomy History of Present Illness: POD # 2 Continues to pass flatus and had dark colored stools tolerating soft diet Denies significant post-op pain - Current Medication List Current Medications: Active Medications Acetaminophen (Ofirmev Injection -) 1,000 mg IVPB Q6H PRN PRN Reason: PAIN LEVEL 4 - 6 Last Admin: 05/13/19 20:40 Dose: 1,000 mg Amlodipine Besylate (Norvasc -) 5 mg PO DAILY [facility] Last Admin: 05/15/19 09:34 Dose: 5 mg Atorvastatin Calcium (Lipitor -) 10 mg PO HS [facility] Last Admin: 05/14/19 21:09 Dose: 10 mg Enoxaparin Sodium (Lovenox -) 40 mg SQ DAILY [facility] Last Admin: 05/15/19 09:33 Dose: 40 mg Potassium Chloride/Dextrose/Sod Cl (D5-1/2ns+20 Meq Kcl -) 20 meq in 1,000 mls @ 42 mls/hr IV ASDIR [facility] Last Admin: 05/14/19 14:45 Dose: 42 mls/hr Metoprolol Succinate (Toprol Xl -) 25 mg PO HS [facility] Last Admin: 05/14/19 21:09 Dose: 25 mg Multivitamins/Minerals (Theragran-M) 1 each PO DAILY [facility] Last Admin: 05/15/19 09:34 Dose: 1 each Yfnko-0-Ygps Ethyl Esters (Lovaza -) 1 gm PO BID [facility] Last Admin: 05/15/19 09:34 Dose: 1 gm Ondansetron HCl (Zofran Injection) 4 mg IVPUSH Q6H PRN PRN Reason: NAUSEA AND/OR VOMITING - Objective Vital Signs: Vital Signs Temperature 97.9 F 05/15/19 09:44 Pulse Rate 72 05/15/19 09:44 Respiratory Rate 18 05/15/19 09:44 Blood Pressure 131/68 05/15/19 09:44 O2 Sat by Pulse Oximetry (%) 98 05/13/19 21:00 Constitutional: Yes: No Distress Gastrointestinal: Yes: Soft Wound/Incision: Yes: Jose Manuel Intact, Other (suprpubic wound with minimal serous discharge) Labs: CBC, BMP 05/15/19 08:27 05/15/19 08:27 Problem List - Problems (1) Colonic mass Assessment/Plan: Doing well continue soft diet OOB, IS, GI, & DVT prophylaxis D/C planning in am Code(s): K63.89 - OTHER SPECIFIED DISEASES OF INTESTINE
--- NOTE | 2019-05-15 14:51 | PN ---
Progress Note, Physician Chief Complaint: Sigmoid Mass Colon Resection History of Present Illness: Previous notes and events reviewed awake and alert NAD POD #2 Laparoscopic Sigmoid Partial colon resection having BM, sts they are dark in color like melena tolerating PO diet sts her pain is controlled - Current Medication List Current Medications: Active Medications Acetaminophen (Ofirmev Injection -) 1,000 mg IVPB Q6H PRN PRN Reason: PAIN LEVEL 4 - 6 Last Admin: 05/13/19 20:40 Dose: 1,000 mg Amlodipine Besylate (Norvasc -) 5 mg PO DAILY [facility] Last Admin: 05/15/19 09:34 Dose: 5 mg Atorvastatin Calcium (Lipitor -) 10 mg PO HS [facility] Last Admin: 05/14/19 21:09 Dose: 10 mg Enoxaparin Sodium (Lovenox -) 40 mg SQ DAILY [facility] Last Admin: 05/15/19 09:33 Dose: 40 mg Potassium Chloride/Dextrose/Sod Cl (D5-1/2ns+20 Meq Kcl -) 20 meq in 1,000 mls @ 42 mls/hr IV ASDIR [facility] Last Admin: 05/14/19 14:45 Dose: 42 mls/hr Metoprolol Succinate (Toprol Xl -) 25 mg PO HS [facility] Last Admin: 05/14/19 21:09 Dose: 25 mg Multivitamins/Minerals (Theragran-M) 1 each PO DAILY [facility] Last Admin: 05/15/19 09:34 Dose: 1 each [id number]-[id number] Ethyl Esters (Lovaza -) 1 gm PO BID [facility] Last Admin: 05/15/19 09:34 Dose: 1 gm Ondansetron HCl (Zofran Injection) 4 mg IVPUSH Q6H PRN PRN Reason: NAUSEA AND/OR VOMITING - Objective Vital Signs: Vital Signs Temperature 97.9 F 05/15/19 09:44 Pulse Rate 72 05/15/19 09:44 Respiratory Rate 18 05/15/19 09:44 Blood Pressure 131/68 05/15/19 09:44 O2 Sat by Pulse Oximetry (%) 98 05/13/19 21:00 Constitutional: Yes: No Distress, Calm Eyes: Yes: Conjunctiva Clear HENT: Yes: Atraumatic Cardiovascular: Yes: Regular Rate and Rhythm Respiratory: Yes: Regular, CTA Bilaterally Gastrointestinal: Yes: Normal Bowel Sounds, Soft, Tenderness (surgical site) Musculoskeletal: Yes: WNL Extremities: Yes: WNL Edema: No Wound/Incision: Yes: Dressing Dry and Intact Neurological: Yes: Alert, Oriented Psychiatric: Yes: Alert, Oriented Labs: CBC, BMP 05/15/19 08:27 05/15/19 08:27 Problem List - Problems (1) Colonic mass Assessment/Plan: -Surgery on board -POD #2 Laparoscopic Sigmoid Partial colon resection -Incentive Spirometer -pain control -DVT ppx Code(s): K63.89 - OTHER SPECIFIED DISEASES OF INTESTINE (2) HTN (hypertension) Assessment/Plan: -Amlodipine, Metoprolol Code(s): I10 - ESSENTIAL (PRIMARY) HYPERTENSION (3) Hyperlipidemia Assessment/Plan: -Atorvastatin Code(s): E78.5 - HYPERLIPIDEMIA, UNSPECIFIED Assessment/Plan problem list D/C planning in AM
[2019-05-15] MEDS: D5-1/2NS+20 MEQ KCL - 20 MEQ/1,000 ML INFUS.BAG IV SCH (21:21)
[2019-05-15] MEDS: metoPROLOL SUCCINATE 25 MG TAB.SR.24H (FP) PO SCH (21:21)
[2019-05-15] MEDS: ATORVASTATIN CA 10 MG TABLET (FP) PO SCH (21:21)
--- NOTE | 2019-05-16 08:47 | DS ---
Physical Examination Vital Signs: Vital Signs Temperature 98.6 F 05/16/19 05:59 Pulse Rate 65 05/16/19 05:59 Respiratory Rate 20 05/16/19 05:59 Blood Pressure 127/76 05/16/19 05:59 O2 Sat by Pulse Oximetry (%) 98 05/15/19 21:00 Findings/Remarks: Laboratory Last Values WBC 10.5 K/mm3 (4.0-10.0) H 05/15/19 08:27 RBC 4.05 M/mm3 (3.60-5.2) 05/15/19 08:27 Hgb 12.1 GM/dL (10.7-15.3) 05/15/19 08:27 Hct 36.1 % (32.4-45.2) 05/15/19 08:27 MCV 89.2 fl (80-96) 05/15/19 08:27 MCH 30.0 pg (25.7-33.7) 05/15/19 08:27 MCHC 33.6 g/dl (32.0-36.0) 05/15/19 08:27 RDW 14.6 % (11.6-15.6) 05/15/19 08:27 Plt Count 244 K/MM3 (134-434) 05/15/19 08:27 MPV 7.1 fl (7.5-11.1) L 05/15/19 08:27 Absolute Neuts (auto) 10.6 K/mm3 (1.5-8.0) H 05/14/19 10:54 Neutrophils % 82.6 % (42.8-82.8) D 05/14/19 10:54 Lymphocytes % 10.3 % (8-40) D 05/14/19 10:54 Monocytes % 6.9 % (3.8-10.2) 05/14/19 10:54 Eosinophils % 0.0 % (0-4.5) D 05/14/19 10:54 Basophils % 0.2 % (0-2.0) 05/14/19 10:54 Nucleated RBC % 0 % (0-0) 05/14/19 10:54 Sodium 140 mmol/L (136-145) 05/15/19 08:27 Potassium 3.4 mmol/L (3.5-5.1) L 05/15/19 08:27 Chloride 106 mmol/L (98-107) 05/15/19 08:27 Carbon Dioxide 29 mmol/L (21-32) 05/15/19 08:27 Anion Gap 5 MMOL/L (8-16) L 05/15/19 08:27 BUN 9.7 mg/dL (7-18) 05/15/19 08:27 Creatinine 0.7 mg/dL (0.55-1.3) 05/15/19 08:27 Est GFR (CKD-EPI)AfAm 98.23 05/15/19 08:27 Est GFR (CKD-EPI)NonAf 84.75 05/15/19 08:27 Random Glucose 102 mg/dL (74-106) 05/15/19 08:27 Calcium 8.7 mg/dL (8.5-10.1) 05/15/19 08:27 Total Bilirubin 0.5 mg/dL (0.2-1) 05/14/19 08:15 AST 36 U/L (15-37) 05/14/19 08:15 ALT 34 U/L (13-61) 05/14/19 08:15 Alkaline Phosphatase 55 U/L (45-117) 05/14/19 08:15 Total Protein 6.4 g/dl (6.4-8.2) 05/14/19 08:15 Albumin 3.2 g/dl (3.4-5.0) L 05/14/19 08:15 Blood Type O POSITIVE 05/13/19 06:24 Antibody Screen Negative 05/13/19 06:24 Active Medications Generic Name Dose Route Start Last Admin Trade Name Aakash PRN Reason Stop Dose Admin Acetaminophen 1,000 mg 05/13/19 14:33 05/13/19 20:40 Ofirmev Injection - IVPB 1,000 mg Q6H PRN Administration PAIN LEVEL 4 - 6 Amlodipine Besylate 5 mg 05/14/19 10:00 05/15/19 09:34 Norvasc - PO 5 mg DAILY ROBERTO Administration Atorvastatin Calcium 10 mg 05/13/19 22:00 05/15/19 21:21 Lipitor - PO 10 mg HS ROBERTO Administration Enoxaparin Sodium 40 mg 05/15/19 10:00 05/15/19 09:33 Lovenox - SQ 40 mg DAILY ROBERTO Administration Potassium Chloride/Dextrose/Sod Cl 20 meq in 1,000 mls @ 42 mls/hr 05/14/19 13 :45 05/15/19 21:21 D5-1/2ns+20 Meq Kcl - IV Not Given ASDIR ROBERTO Metoprolol Succinate 25 mg 05/13/19 22:00 05/15/19 21:21 Toprol Xl - PO 25 mg HS ROBERTO Administration Multivitamins/Minerals 1 each 05/14/19 10:00 05/15/19 09:34 Theragran-M PO 1 each DAILY ROBERTO Administration [id number] Ethyl Esters 1 gm 05/13/19 22:00 05/15/19 21:21 Lovaza - PO 1 gm BID ROBERTO Administration Ondansetron HCl 4 mg 05/13/19 13:45 Zofran Injection IVPUSH Q6H PRN NAUSEA AND/OR VOMITING Constitutional: Yes: No Distress, Calm Eyes: Yes: Conjunctiva Clear HENT: Yes: Atraumatic Neck: Yes: Supple Cardiovascular: Yes: Regular Rate and Rhythm Respiratory: Yes: Regular, CTA Bilaterally Gastrointestinal: Yes: Normal Bowel Sounds, Soft, Tenderness (surgical incision) Musculoskeletal: Yes: WNL Extremities: Yes: WNL Edema: No Wound/Incision: Yes: Dressing Dry and Intact Neurological: Yes: Alert, Oriented Psychiatric: Yes: Alert, Oriented Labs: CBC, BMP 05/15/19 08:27 05/15/19 08:27 Discharge Summary Problems reviewed: Yes Reason For Visit: SIGMOID MASS Current Active Problems Colonic mass (Acute) HTN (hypertension) (Acute) Hyperlipidemia (Acute) Hospital Course: Patient is a 74 y/o female with past medical history of HTN and HLD. After having colonoscopy sigmoid colonic mass was found. Followed up with Dr Meléndez for colon resection. Patient had Laparoscopic partial sigmoid colectomy and is currently POD# 3. Pain is controlled and has been passing flatus and having BM. Plan of Treatment: Follow up with Surgery Dr Meléndez Condition: Stable - Instructions Diet, Activity, Other Instructions: Follow up with PMD in 2 weeks of discharge Follow up with Dr Joseph Meléndez~Surgery for post surgical follow up and staple removal continue with medication as prescribed Tylenol or Motrin for pain relief low sodium diet continue to use incentive spirometer return to ER if develop severe pain, respiratory distress, chest pain, or melena Referrals: Joseph Meléndez MD [Staff Physician] - Michelle Love MD [Staff Physician] - Disposition: VNS/HOME HEALTH CARE - Home Medications Comprehensive Discharge Medication List: Ambulatory Orders Amlodipine Besylate [Norvasc -] 5 mg PO DAILY 10/17/13 Atorvastatin Ca [Lipitor] 10 mg PO HS 04/19/19 C,E,Zinc,Copper 11/Silue2u/Lut [Ocuvite Adult 50 Plus Softgel] 1 tab PO DAILY Clopidogrel Bisulfate [Plavix] 75 mg PO DAILY 04/19/19 Cyclosporine [Restasis] 1 each OU BID 04/19/19 Metoprolol Succinate 25 mg PO HS 04/19/19 Multivitamin/Iron/Folic Acid [Centrum Adults Tablet] 1 each PO DAILY 04/19/19 [place]-3 Acid Ethyl Esters [Lovaza -] 1 gm PO BID 04/19/19 Neomycin Sulfate 1,000 mg PO Q8H 05/12/19 metroNIDAZOLE [Flagyl -] 500 mg PO TID 05/12/19
[2019-05-16] MEDS: ENOXAPARIN NA (PORCINE) 40 MG/0.4 ML DISP.SYRIN SQ SCH (09:00)
[2019-05-16] MEDS: MULTIVITAMINS THER W-MINERALS COMBO TABLET (FP) PO SCH (09:00)
[2019-05-16] MEDS: amLODIPine BESYLATE 5 MG TABLET (FP) PO SCH (09:00)
[2019-05-16] MEDS: OMEGA-3 ACID ETHYL ESTERS (FATTY-ACIDS) 1 GM CAPSULE (FP) PO SCH (09:00)
[2019-05-16 10:11] VITALS: BP 110/65; PULSE 64; TEMP 98.4
--- NOTE | 2019-05-18 18:42 | PATH ---
Surgical Pathology Report Patient Name: MAMADOU RIGGS [facility]. Rec. #: [id number] /Age/Gender: 1945 (Age: 74) / F Account: [id number] Location: [facility] MED/SURG Taken: 05/13/2019 Received: 05/13/2019 Reported: 05/18/2019 Physicians: Joseph Meléndez M.D. Specimen(s) Received PARTIAL SIGMOID COLON Clinical History Sigmoid mass Final Diagnosis PARTIAL SIGMOID COLON, RESECTION: ADENOCARCINOMA, MODERATELY DIFFERENTIATED, MEASURING 4.3 CM IN GREATEST DIMENSION. TUMOR INVADES THROUGH THE MUSCULARIS PROPRIA INTO PERICOLORECTAL TISSUE. ALL MARGINS ARE UNINVOLVED BY CARCINOMA. EIGHTEEN LYMPH NODES, NEGATIVE FOR METASTATIC CARCINOMA (0/18). LYMPHOVASCULAR INVASION NOT IDENTIFIED. PERINEURAL INVASION NOT IDENTIFIED. PATHOLOGIC STAGE (pTNM, AJCC 8TH EDITION): pT3 pN0 SEE SURGICAL PATHOLOGY CANCER CASE SUMMARY BELOW. Comments Colorectal Carcinoma :Surgical Pathology Cancer Case Summary (Based on AJCC TNM 8 th edition) Procedure _x_ Sigmoidectomy Tumor Site _x_ Sigmoid colon Tumor Size Greatest dimension (centimeters): 4.3 cm Macroscopic Tumor Perforation _x_ Not identified Histologic Type _x_ Adenocarcinoma Histologic Grade _x_ G2: Moderately differentiated Tumor Extension _x_ Tumor invades through the muscularis propria into pericolorectal tissue Margins _x_ All margins are uninvolved by invasive carcinoma, high-grade dysplasia, intramucosal adenocarcinoma, and adenoma Margins examined: proximal margin, distal margin, radial margin Treatment Effect _x_ No known presurgical therapy Lymphovascular Invasion _x_ Not identified Perineural Invasion _x_ Not identified Tumor Deposits _x_ Not identified Regional Lymph Nodes Lymph Node Examination Number of Lymph Nodes Involved: 0 Number of Lymph Nodes Examined: 18 Pathologic Stage Classification (pTNM, AJCC 8th Edition) Primary Tumor (pT) _x_ pT3: Tumor invades through the muscularis propria into pericolorectal tissues Regional Lymph Nodes (pN) _x_ pN0: No regional lymph node metastasis Electronically Signed Jose Armando Martino M.D. Addendum Reported: 05/24/2019 Addendum Diagnosis Immunohistochemistry (IHC) Testing for Mismatch Repair (MMR) Proteins performed at [facility] in [place], [place] ([id number]) and interpreted at [facility] show the following results: MLH1 Intact nuclear expression MSH2 Intact nuclear expression MSH6 Intact nuclear expression PMS2 Intact nuclear expression Background nonneoplastic tissue/internal control with intact nuclear expression IHC Interpretation: No loss of nuclear expression of MMR proteins: low probability of microsatellite instability-high (MSI-H) Jose Armando Martino M.D. Gross Description Received in formalin labeled "partial sigmoid colon," is a 23 cm in length portion of colon with a suture marking the proximal margin, per the surgeon. The specimen displays two stapled mucosal margins as well as abundant attached pericolonic adipose tissue. The serosa is aponte-mason with a focal bulging area. The mucosa displays a 4.3 x 4.0 cm aponte, polypoid, circumferential, centrally ulcerated mass in the area of the bulging serosa. The mass is 10 cm from the proximal mucosal margin of resection, 9 cm from the distal mucosal margin of resection and 4 cm from the mesenteric margin of resection. The mass appears to invade through the serosa and possibly into the pericolonic adipose tissue. The remaining mucosa is aponte with normal folds. Sectioning of the pericolonic adipose tissue reveals multiple aponte lymph nodes, measuring up to 0.9 cm in greatest dimension. [employer] sections are submitted in 17 cassettes as follows: 1-proximal mucosal margin of resection; 2-distal mucosal margin of resection; 3-shave of mesenteric margin of resection; 4-8-mass; 9-uninvolved distal bowel; 10-one trisected lymph node; 11-12-one bisected lymph node each; 13-one whole lymph node; 14-17-three whole possible lymph nodes each. 05/16/2019 [facility]
== END 2019-05-16 10:37 | disposition home health service (06) | DRG 331 ==
LOC: JSAMEDAYSX 06:09 → J8W 16:06
PROVIDERS: ADMIT Surgery; ATTEND Surgery
PROC: 0DBN4ZZ Excision of Sigmoid Colon, Percutaneous Endoscopic Approach (ICD-10-PCS; principal; 2019-05-13 08:00)
DX: C18.7 Malignant neoplasm of sigmoid colon (principal); I10 Essential (primary) hypertension; E78.5 Hyperlipidemia, unspecified; K63.89 Other specified diseases of intestine
CPT/HCPCS: 36415; 74018-TC-FY; 80048; 80053; 85025; 85027; 86850; 86900; 86901; 88307-TC; 93005; 93010; 94760; J0131

== ENCOUNTER 2021-08-10 09:22 | Emergency (ER) | payer OTHER, BC ==
[2021-08-10 09:29] VITALS: TEMP 97.9; BMI 29.2
[2021-08-10] MEDS ORDERED: NITROGLYCERIN 2% OINTMENT - 1GM PACKET TD ONE ×2 (09:55→10:01)
[2021-08-10 10:20] LABS: EOS % 2.9 % (0-4.5); HEMATOCRIT 43.5 % (32.4-45.2); HEMOGLOBIN 14.4 GM/dL (10.7-15.3); LYMPH % 43.8 % (8-40); MCH 30.2 pg (25.7-33.7); MCHC 33.1 g/dl (32.0-36.0); MEAN CELL VOLUME 91.1 fl (80-96); MEAN PLT VOLUME 7.1 fl (7.5-11.1); MONO % 9.9 % (3.8-10.2); NEUT % 42.4 % (42.8-82.8); PLATELET COUNT 226 10^3/uL (134-434); RBC 4.77 M/mm3 (3.60-5.2); RDW 13.6 % (11.6-15.6); WHITE BLOOD COUNT 4.8 K/mm3 (4.0-10.0)
[2021-08-10 10:27] LABS: ALBUMIN 4.1 g/dl (3.4-5.0); BLOOD UREA NITROGEN 16.6 mg/dL (7-18); CALCIUM 9.6 mg/dL (8.5-10.1)
[2021-08-10 10:28] LABS: PROTHROMBIN TIME (PATIENT) 11.5 SEC (9.7-13.0)
[2021-08-10 10:32] LABS: BILIRUBIN,TOTAL 0.6 mg/dL (0.2-1); TOT PROT 7.9 g/dl (6.4-8.2)
[2021-08-10 10:39] LABS: SARS AG REFLEX COV19 SEND OUT negative (Negative)
[2021-08-10 14:59] LABS: N-TERMINAL BNP 23.3 pg/ml (5-450)
[2021-08-10 15:59] VITALS: BP 118/60; PULSE 71
[2021-08-11 15:07] LABS: SARS-CoV-2 NAA Not Detected (Not Detected)
== END 2021-08-10 15:59 | disposition home or self-care (01) ==
LOC: JER 09:22
DX: R07.9 Chest pain, unspecified (principal)
CPT/HCPCS: 36415; 71045-TC-FY; 80053; 80061; 82550; 83036; 83880; 84443; 84484; 85025; 85610; 87426; 93005; 93010; 99284-25; C9803; U0003; U0005